=== PATIENT | male | born 1965 | race Caucasian/White ===

== ENCOUNTER 2017-11-26 15:32 | Emergency (ER) | payer SELFPAY ==
[2017-11-26 17:14] VITALS: BP 126/72; PULSE 90; RESP 18; TEMP 98.2; O2SAT 97
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
[2017-11-26] MEDS ORDERED: SODIUM CHLOR 0.9% 1000 ML INJ 1,000 ML IV SCH (19:42)
[2017-11-26] MEDS ORDERED: SODIUM CHLORIDE 0.9% FLUSH 10 ML FLUSH IVF PRN (19:45)
[2017-11-26] MEDS ORDERED: ONDANSETRON HCL 4 MG/2 ML VIAL IV PUSH ONE (19:45)
[2017-11-26] MEDS ORDERED: MORPHINE SULFATE 4 MG/ML INJ IV PUSH ONE ×2 (19:45→21:30)
[2017-11-26 19:59] VITALS: BP 115/80; PULSE 78; RESP 16; O2SAT 99
[2017-11-26 20:00] VITALS: O2SAT 99
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
[2017-11-26] MEDS ORDERED: ATOR80TA45 PO (20:03)
[2017-11-26] MEDS ORDERED: IOHEXOL 350 MG/ML 10 ML VIAL (for RAD DIAG) IVCONTRAST ONE (20:51)
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
[2017-11-26 21:29] LABS: AUTOMATED NEUTROPHIL # 7.9 TH/MM3 (1.8-7.7); BASOPHIL % 0.2 % (0.0-2.0); EOSINOPHIL % 0.1 % (0.0-4.0); HEMATOCRIT 39.7 % (39.0-51.0); HEMOGLOBIN 13.5 GM/DL (13.0-17.0); LYMPH % 17.3 % (9.0-44.0); LYMPHOCYTE # 1.9 TH/MM3 (1.0-4.8); MEAN CELL VOLUME 91.6 FL (80.0-100.0); MEAN CORPUSCULAR HEMOGLOBIN 31.1 PG (27.0-34.0); MEAN CORPUSCULAR HGB CONC 33.9 % (32.0-36.0); MEAN PLATELET VOLUME 7.6 FL (7.0-11.0); MONO % 9.1 % (0.0-8.0); NEUT % 73.3 % (16.0-70.0); PLATELET COUNT 223 TH/MM3 (150-450); RED BLOOD COUNT 4.33 MIL/MM3 (4.50-5.90); RED CELL DISTRIBUTION WIDTH 13.3 % (11.6-17.2); WHITE BLOOD COUNT 10.8 TH/MM3 (4.0-11.0)
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
[2017-11-26 21:38] LABS: INTERNATIONAL NORMALIZED RATIO 1.3 RATIO; PROTHROMBIN TIME - PATIENT 12.8 SEC (9.8-11.6)
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
[2017-11-26 21:45] LABS: BICARBONATE 26.4 MEQ/L (21.0-32.0); CALCIUM 8.6 MG/DL (8.5-10.1); CREATININE 0.93 MG/DL (0.60-1.30)
[2017-11-26] MEDS ORDERED: CYCL10TA PO (21:55)
[2017-11-26] MEDS ORDERED: IBUP1TAB7 PO (21:55)
[2017-11-26] MEDS ORDERED: PERC5TAB12 PO (21:55)
[2017-11-26] MEDS ORDERED: TETANUS/DIPHTHERIA TOXOID ADULT 0.5 ML VIAL IM ONE (22:15)
[2017-11-26 22:54] VITALS: BP 120/81
== END 2017-11-26 22:55 | disposition home or self-care (01) ==
LOC: NEPE 15:32
DX: S42.031A Displaced fracture of lateral end of right clavicle, initial encounter for closed fracture (principal); V29.9XXA Motorcycle rider (driver) (passenger) injured in unspecified traffic accident, initial encounter; Y92.410 Unspecified street and highway as the place of occurrence of the external cause; R07.81 Pleurodynia; Z23 Encounter for immunization
CPT/HCPCS: 70450; 71046; 71260; 72125; 72129; 72132; 73030; 74177; 80048; 85025; 85610; 85730; 90471; 90714; 96361; 96374; 96375; 96376; 99285; J2270; J2405; J7030; Q9967